=== PATIENT | male | born 1955 | race Two or more races ===

== ENCOUNTER 2023-12-27 11:25 | Emergency (ER) | payer OTHER ==
[~2023-12-27] VITALS: Ht 177.8 cm; Wt 111.9 kg
[2023-12-27 12:56] LABS: Urine Bacteria FEW /hpf (None Seen); Urine Blood 2+ /uL (Negative); Urine Clarity Turbid (Clear); Urine Color Light-Yellow (Yellow); Urine Mucus FEW (None Seen); Urine Protein, UAD Negative (Negative); Urine Specific Gravity 1.012 (1.001-1.035); Urine Urobilinogen Normal (Negative); Urine WBC 7 /hpf (0 - 3)
[2023-12-27] MEDS: SODIUM CHLORIDE 0.9% 1,000 ML IV ONE (13:23)
[2023-12-27] MEDS: cefTRIAXone 1GM/50ML D5W 50 ML IV ONE (13:37)
[2023-12-27 14:16] LABS: Basophils # (auto) 0 10 ^3/uL (0-0.2); Basophils % (auto) 0.2 % (0.0-2.0); Eosinophils # (auto) 0 10 ^3/uL (0-0.8); Hematocrit 39.8 % (41.0-53.0); Hemoglobin 13.6 g/dL (13.5-17.5); Lymphocytes # (auto) 0.8 10 ^3/uL (0.4-5.4); Lymphocytes % (auto) 8.7 % (10.0-50.0); Mean Corpuscular Hemoglobin 31.7 pg (28.0-32.0); Mean Corpuscular Hgb Conc. 34.2 g/dL (32.0-36.0); Mean Corpuscular Volume 92.8 fL (80.0-100.0); Monocytes # (auto) 0.8 10 ^3/uL (0-1.3); Monocytes % (auto) 9.7 % (0.0-12.0); Neutrophils # (auto) 7.1 10 ^3/uL (1.6-8.6); Neutrophils % (auto) 81.4 % (37.0-80.0); Platelet Count (auto) 129 10^3/uL (140-450); Red Blood Cells 4.29 10^6/uL (4.5-5.90); Red Cell Distribution Width 15.1 % (11.8-14.3); White Blood Cell 8.7 10^3/uL (4.4-10.8)
[2023-12-27 14:47] LABS: Alanine Aminotransferase 13 U/L (7-40); Albumin 4.3 g/dL (3.2-4.8); Alkaline Phosphatase 55 U/L (46-116); Anion Gap 12 (5-15); Aspartate Aminotransferase 13 U/L (13-40); BUN/Creatinine Ratio 9.2 (10.0-20.0); Bilirubin, Total 0.8 mg/dL (0.2-1.0); Blood Urea Nitrogen 46 mg/dL (9-23); Calcium 8.2 mg/dL (8.7-10.4); Carbon Dioxide 17 mmol/L (20-30); Chloride 106 mmol/L (98-107); Glucose 126 mg/dL (74-106); Lipase 32 U/L (12-53); Sodium 135 mmol/L (136-145)
[2023-12-27 15:42] VITALS: PULSE 95; RESP 16; O2SAT 97
[2023-12-27 23:20] VITALS: BP 126/98; PULSE 88; RESP 16; TEMP 98.1; O2SAT 96
== END 2023-12-27 23:30 | disposition short-term general hospital (02) ==
LOC: ER 11:25
DX: N40.1 Benign prostatic hyperplasia with lower urinary tract symptoms (principal); R33.8 Other retention of urine; N17.9 Acute kidney failure, unspecified; E11.9 Type 2 diabetes mellitus without complications; Z98.890 Other specified postprocedural states
CPT/HCPCS: 36415; 74176; 80053; 81001; 83605; 83690; 84484; 85025; 93005; 96365; 99291; J0696; J7030